=== PATIENT | male | born 1960 | race Caucasian/White ===

== ENCOUNTER 2016-11-14 14:42 | Emergency (ER) | payer BC ==
[2016-11-14 15:10] VITALS: TEMP 98
[2016-11-14] MEDS ORDERED: HYDROmorphone HCL INJ 2 MG/ML VIAL IV ONE (15:23)
[2016-11-14] MEDS ORDERED: ONDANSETRON INJ 4 MG/2 ML VIAL IV ONE (15:23)
--- NOTE | 2016-11-14 15:26 | ED.PDOC ---
History of Present Illness - General Chief Complaint: Back Pain or Injury Stated Complaint: back pain hx of lumbar fractures Time Seen by Provider: 11/14/16 14:45 Source: patient, RN notes reviewed, Vital Signs reviewed, family Exam Limitations: no limitations - History of Present Illness Initial Comments: Patient with significant back history including 2 lumbar fusions has noticed over the past 5 weeks progressive worsening of his pain and weakness in his legs. He has some residual weakness in his L leg from lumbar surgery in 2011. He is now having numbness and weakness in his R leg. Can't walk due to the weakness, leg just seems to "flop around". Had MRI done today as an outpatient. Will change to STAT read to see what is going on in his back. Timing/Duration: getting worse, changing over time Quality/Severity: dullness, other - numbness Back Pain Location: lumbar spine Back Pain Radiation: upper legs, lower legs, feet Method of Injury/Prior Injury: other - Hx of lumbar fusions L3-S1 Improving Factors: nothing Worsening Factors: movement Associated Symptoms: weakness, numbness in legs/feet, tingling in legs/feet, sensory/motor loss, lower back pain, other - no loss of bowel or bladder control Allergies/Adverse Reactions: Allergies NO KNOWN ALLERGY Allergy (Verified 11/14/16 15:26) Home Medications: Ambulatory Orders HYDROcodone 10MG/APAP 325MG [[place] 10/325] 1 ea PO 11/14/16 Lyrica 600 mg PO BID 11/14/16 Tramadol HCl [Tramadol HCl ER] 100 mg PO 11/14/16 methylPREDNISolone TAB [Medrol Tab] 4 mg PO DAILY #1 pack 11/14/16 Review of Systems - Review of Systems Constitutional: States: no symptoms reported EENTM: States: no symptoms reported Respiratory: States: no symptoms reported Cardiology: States: no symptoms reported Gastrointestinal/Abdominal: States: no symptoms reported Genitourinary: States: no symptoms reported Musculoskeletal: States: see HPI, back pain Skin: States: no symptoms reported Neurological: States: see HPI, numbness, paresthesia, pre-existing deficit, weakness Endocrine: States: no symptoms reported Hematologic/Lymphatic: States: no symptoms reported Past Medical History (General) - Patient Medical History Hx Seizures: No Hx Stroke: No Hx Dementia: No Hx Asthma: No Hx of COPD: No Hx Cardiac Disorders: No Hx Congestive Heart Failure: No Hx Pacemaker: No Hx Hypertension: No Hx Thyroid Disease: No Hx Diabetes: No Hx Gastroesophageal Reflux: No Hx Renal Disease: No Hx Cancer: No Hx of HIV: No Hx Hepatitis C: No Hx MRSA: Yes MRSA Source:: Wound - Vaccination History Hx Tetanus, Diphtheria Vaccination: Yes Hx Influenza Vaccination: Yes Hx Pneumococcal Vaccination: Yes Immunizations Up to Date: No - Social History Hx Tobacco Use: No Hx Chewing Tobacco Use: No Hx Alcohol Use: No Hx Substance Use: No Hx Substance Use Treatment: No Hx Depression: No Feels Threatened In Home Enviroment: No Feels Threatened In a Relationship: No Hx Physical Abuse: No Hx Emotional Abuse: No Hx Suspected Abuse: No - Female History Patient is a Female of Child Bearing Age (10 -59 yrs old): No Patient : No Family Medical History - Family History Mother Family History: No Known Living Status: Unknown Physical Exam - Physical Exam General Appearance: Alert, No apparent distress, Well Developed, Well Groomed, Well Hydrated, Well Nourished Cardiovascular/Respiratory: regular rate, rhythm, no M/R/G, normal breath sounds , no respiratory distress Peripheral Pulses: dorsalis pedis,right: 2+, dorsalis pedis,left: 2+ Extremity Exam: no evidence of injury Neurologic: alert, normal mood/affect, oriented x 3, motor weakness - Significant weakness of flexion/extension of R foot and leg 2/5, L 4/5, sensory deficit - decreased sensation to light touch Bilateral lower legs - diffusely., depressed affect, other - DTR's - R patellar 2+, L patellar 0 (unchanged per patient) Skin Exam: normal color, warm/dry Comments: Vital Signs - 24 hr 11/14/16 15:03 Temperature 98 F Pulse Rate [ 79 Left Radial] Respiratory 20 Rate Blood Pressure 155/99 [Left Arm] O2 Sat by Pulse 99 Oximetry Progress - Progress Progress: 11/14/16 15:[address] Roberts, patients Neurosurgeon, awaiting call back. 11/14/16 16:39 Second call placed, he is in surgery. 11/14/16 17:[address] Roberts who agrees with rapid follow up with him. Recommended Decadron 6mg IV now, Medrol Dose Pk to start tomorrow and continue Lyrica 300mg TID. Patient is to call Dr. Roberts' office in AM to schedule appt. - Results/Orders Results/Orders: MRI: L2-3 - moderate to severe spinal canal narrowing with severe bilateral neural foraminal narrowing. Departure - Departure Clinical Impression: Degeneration of lumbar intervertebral disc, Lumbar radiculopathy, acute Time of Disposition: 17:48 Disposition: Discharge to Home or Self Care Condition: Good Departure Forms: ED Discharge - Pt. Copy, Patient Portal Self Enrollment Instructions: DI for Low Back Pain Diet: resume usual diet Activity: increase activity as tolerated Prescriptions: methylPREDNISolone TAB [Medrol Tab] 4 mg PO DAILY #1 pack Home Medications: Ambulatory Orders HYDROcodone 10MG/APAP 325MG [[place] 10/325] 1 ea PO 11/14/16 Lyrica 600 mg PO BID 11/14/16 Tramadol HCl [Tramadol HCl ER] 100 mg PO 11/14/16 methylPREDNISolone TAB [Medrol Tab] 4 mg PO DAILY #1 pack 11/14/16 Additional Instructions: Con't Lyrica Call Dr. Roberts' office in AM to schedule follow up.
[2016-11-14] MEDS ORDERED: DEXAMETHASONE INJ 10 MG/ML VIAL IV ONE (17:44)
[2016-11-14 17:59] VITALS: BP 135/88; O2SAT 97
== END 2016-11-14 18:06 | disposition home or self-care (01) ==
LOC: ER 14:42
DX: M51.16 Intervertebral disc disorders with radiculopathy, lumbar region (principal); Z98.1 Arthrodesis status; Z86.14 Personal history of Methicillin resistant Staphylococcus aureus infection

== ENCOUNTER → 2016-11-14 | Outpatient (CLI) | payer BC ==
--- NOTE | 2016-11-14 15:37 | MRI ---
Study: MRI of the Lumbar Spine. Indication: LOW BACK PAIN Technique: Multiplanar, multi sequence MRI of the lumbar spine was obtained without intravenous contrast. Comparison: October 13, 2015. Findings: L3-S1 bilateral pedicle screws with posterior vertical stabilization rods as well as L3-L4, L4-L5, L5-S1 interbody grafts and laminectomies redemonstrated. There is pronounced susceptibility artifact. No acute vertebral body fracture identified. No marrow infiltrating lesion. Conus normal terminating at superior L1 level. L1-L2: Trace retrolisthesis. Moderate disc space height loss and disc desiccation with a 3 mm disc bulge. Mild bilateral neural foraminal narrowing stable. No spinal canal narrowing. Stable mild bilateral lateral recess narrowing. L2-L3: Progressed severe disc space height loss and disc desiccation with remodeling of the endplates. Discogenic endplate changes suspected but difficult to evaluate due to the susceptibility artifact. In addition, there does appear to be progressive cystic change along the right posterolateral margin of the L2 inferior endplate. A progressed 5 mm disc osteophyte complex noted in addition moderate to severe bilateral facet arthrosis and mild ligament and buckling. Prominent spurring of the anteromedial margin right facet joint noted with marked flattening of the thecal sac in the transverse dimension. There is resultant moderate to severe spinal canal narrowing. Severe bilateral neural foraminal narrowing noted as well. L3-L4: No new complicating features. L4-L5: Trace anterolisthesis with stable mild to moderate right and mild left neural foraminal narrowing. No spinal canal narrowing. L5-S1: The posterior margin of the interbody graft extends into the left neural foramen. There is severe left and at least moderate to severe right neural foraminal narrowing. No spinal canal narrowing. Impression: L3-S1 fusion construct and posterior decompression as above with associated susceptibility artifact which does degrade the examination. L5-S1 interbody graft extending into the left neural foramen with severe left and moderate to severe right neural foraminal narrowing. L4-L5 stable [id number] right and mild left neural foraminal narrowing. L2-L3 progress disc disease as above with progressive moderate to severe spinal canal narrowing and severe bilateral neural foraminal narrowing. Endplate changes at this level are nonspecific. Correlation with ESR and CRP recommended as discitis-osteomyelitis not excluded. Additional findings as above. Electronically signed by: Guillermo Johnson MD 11/14/2016 3:36 PM CDT
== END | disposition home or self-care (01) ==
LOC: MRI 12:54
PROVIDERS: ATTEND Family Medicine
DX: M54.5 Low back pain (principal)

== ENCOUNTER → 2016-11-17 | Outpatient (CLI) | payer BC | END | disposition home or self-care (01) | LOC: GMAL 17:32 | PROVIDERS: ATTEND Family Medicine | DX: M25.50 Pain in unspecified joint (principal) ==

== ENCOUNTER → 2017-07-28 | Outpatient (CLI) | payer BC | LOC: GMAL 10:36 | PROVIDERS: ATTEND Family Medicine | DX: Z00.00 Encounter for general adult medical examination without abnormal findings (principal) ==

== ENCOUNTER → 2017-12-07 | Outpatient (CLI) | payer BC | LOC: GMAL 14:24 | PROVIDERS: ATTEND Family Medicine | DX: E55.9 Vitamin D deficiency, unspecified (principal) ==

== ENCOUNTER 2017-12-17 08:52 | Emergency (ER) | payer BC ==
--- NOTE | 2017-12-17 09:45 | ED.PDOC ---
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 Timing/Duration: 24 hours Quality/Severity: sharpness Back Pain Location: T-spine, lumbar spine Back Pain Radiation: other - none Method of Injury/Prior Injury: other - old injury Improving Factors: rest Worsening Factors: movement Associated Symptoms: denies symptoms Allergies/Adverse Reactions: Allergies NO KNOWN ALLERGY Allergy (Verified 12/17/17 09:08) Home Medications: Ambulatory Orders HYDROcodone 10MG/APAP 325MG [[place] 10/325] 1 ea PO Q4HR 11/14/16 Tramadol HCl [Tramadol HCl ER] 100 mg PO BID 11/14/16 Acetamin W/Cod #3 Tab [Tylenol w/CODEINE #3] 2 ea PO Q6HRS PRN #20 tab 12/17/17 Aspirin/Acetaminophen/Caffeine [Excedrin Migraine] 1 ea PO PRN PRN 12/17/17 Escitalopram [Lexapro] 10 mg PO BEDTIME 12/17/17 Pregabalin [Lyrica] 1 capsule PO BEDTIME 12/17/17 Sucralfate Suspension [Carafate Suspension] 1 gm PO ACHS #300 ml 12/17/17 Tamsulosin [Flomax] 0.4 mg PO QD #7 cap 12/17/17 raNITIdine HCL [Zantac] 150 mg PO BID #60 tab 12/17/17 Review of Systems - Review of Systems Constitutional: States: no symptoms reported EENTM: States: nose congestion Respiratory: States: no symptoms reported Cardiology: States: no symptoms reported Gastrointestinal/Abdominal: States: no symptoms reported Genitourinary: States: no symptoms reported Musculoskeletal: States: see HPI Neurological: States: no symptoms reported All other Systems: Reviewed and Negative, No Change from Baseline Past Medical History (General) - Patient Medical History Hx Seizures: No Hx Stroke: No Hx Dementia: No Hx Asthma: Yes - As a child Hx of COPD: No Hx Cardiac Disorders: No Hx Congestive Heart Failure: No Hx Pacemaker: No Hx Hypertension: No Hx Thyroid Disease: No Hx Diabetes: No Hx Gastroesophageal Reflux: No Hx Renal Disease: No Hx Cancer: No Hx of HIV: No Hx Hepatitis C: No Hx MRSA: Yes MRSA Source:: Wound Surgical History: other - multiple lumbar sugery;ORIF right forearm fracture - Vaccination History Hx Tetanus, Diphtheria Vaccination: Yes Hx Influenza Vaccination: No Hx Pneumococcal Vaccination: Yes - Social History Hx Tobacco Use: No Hx Chewing Tobacco Use: No Hx Alcohol Use: Yes - Occas Hx Substance Use: No Hx Substance Use Treatment: No Hx Depression: No Feels Threatened In Home Enviroment: No Feels Threatened In a Relationship: No Hx Physical Abuse: No Hx Emotional Abuse: No Hx Suspected Abuse: No - Female History Patient : No Family Medical History - Family History Mother Family History: No Known Living Status: Unknown Hx Cardiac Disease: Yes - dad Hx Family Cancer: Yes - breast-mom Physical Exam - Physical Exam General Appearance: Alert, Comfortable, No apparent distress Eyes, Ears, Nose, Throat Exam: normal ENT inspection Neck Exam: non-tender, full range of motion, normal alignment, normal inspection Cardiovascular/Respiratory: regular rate, rhythm, no M/R/G, normal peripheral pulses, no JVD Peripheral Pulses: radial,right: 2+, radial,left: 2+ Gastrointestinal/Abdominal: normal bowel sounds, non tender, soft, no organomegaly Back Exam: no CVA tenderness, no vertebral tenderness, muscle spasm, other - rectal exam-prostate moderately enlarged ;posive FOBT Extremity Exam: normal range of motion, non-tender, no pedal edema Neurologic: alert, oriented x 3, motor weakness - foot [id number] from previous surgeries Skin Exam: normal color, warm/dry Progress - Progress Progress: 12/17/17 09:50 Vital Signs - 8 hr 12/17/17 09:29 Temperature 97.6 F Pulse Rate [L 102 H Arm] Respiratory 18 Rate Blood Pressure 144/100 [L Arm] O2 Sat by Pulse 100 Oximetry - EKG/XRAY/CT EKG: Sinus, no ST T wave changes Comments: NSR;HR-73 XRAY: chest - no acute cardiopulmonary process CT Ordered: Yes - abd/p-3 mm UVJ right ureterolithiasis Departure - Departure Clinical Impression: Calculus of distal right ureter, Positive occult stool blood test, Rhinitis medicamentosa, History of back surgery Back pain, acute Qualifiers: Back pain location: thoracic back pain Back pain laterality: unspecified Qualified Code(s): M54.6 - Pain in thoracic spine Time of Disposition: 12:48 Disposition: Discharge to Home or Self Care Condition: Fair Departure Forms: ED Discharge - Pt. Copy, Patient Portal Self Enrollment Instructions: DI for Low Back Pain Referrals: Elmer Royal III, MD [Primary Care Provider] - 1-2 Weeks Prescriptions: Acetamin W/Cod #3 Tab [Tylenol w/CODEINE #3] 2 ea PO Q6HRS PRN #20 tab PRN Reason: Pain raNITIdine HCL [Zantac] 150 mg PO BID #60 tab Sucralfate Suspension [Carafate Suspension] 1 gm PO ACHS #300 ml Tamsulosin [Flomax] 0.4 mg PO QD #7 cap Home Medications: Ambulatory Orders HYDROcodone 10MG/APAP 325MG [[place] 10/325] 1 ea PO Q4HR 11/14/16 Tramadol HCl [Tramadol HCl ER] 100 mg PO BID 11/14/16 Acetamin W/Cod #3 Tab [Tylenol w/CODEINE #3] 2 ea PO Q6HRS PRN #20 tab 12/17/17 Aspirin/Acetaminophen/Caffeine [Excedrin Migraine] 1 ea PO PRN PRN 12/17/17 Escitalopram [Lexapro] 10 mg PO BEDTIME 12/17/17 Pregabalin [Lyrica] 1 capsule PO BEDTIME 12/17/17 Sucralfate Suspension [Carafate Suspension] 1 gm PO ACHS #300 ml 12/17/17 Tamsulosin [Flomax] 0.4 mg PO QD #7 cap 12/17/17 raNITIdine HCL [Zantac] 150 mg PO BID #60 tab 12/17/17 Additional Instructions: Discontinue Excedrin;Taper down on Afrin [place] for your nasal congestion-to one spray each nostril once a day 3 days on 3 days off;Need to follow up with your primary Md for referral to ENT for your chronic nasal congestion from chronic afrin use;Continue with Flonase(fluticasone-otc) nose spray -2 each nostril at bedtime;May take either-Geraldine,Zyrtec,Claritin (over the counter) for allergic rhinitis read direction on package insert;Also Follow up with your md for positive stool occult blood test to schedule you for egd/colonoscopy;Return to emergency room as needed;Might also need to see Urologist in am for your ureteral stone call your md's office for referral
[2017-12-17] MEDS ORDERED: LACTATED RINGERS 1,000 ML IVS ONE (09:51)
[2017-12-17] MEDS ORDERED: PROMETHAZINE HCL INJ 25 MG/ML VIAL IM ONE (09:51)
[2017-12-17] MEDS ORDERED: MORPHINE SULFATE INJ 10 MG/ML VIAL IV ONE (09:51)
[2017-12-17] MEDS ORDERED: ORPHENADRINE CITRATE 30 MG/ML AMP IV ONE (09:51)
--- NOTE | 2017-12-17 10:33 | RAD ---
Procedure: XR CHEST 2 VIEWS Exam Date: 12/17/2017 9:51 AM CDT Ordering Provider: Noman Evans Clinical Indication: pain Comparison: None Findings: The lungs are clear and well-aerated. No pleural effusion or pneumothorax. Cardiac silhouette is normal in size. Impression: No acute pulmonary process. Electronically signed by: Kina Lerner MD 12/17/2017 10:32 AM CDT
[2017-12-17] MEDS ORDERED: PANTOPRAZOLE INJECTION 80 MG in SODIUM CHLORIDE 0.9% 100ML 80 ML IVPB ONE (11:13)
[2017-12-17] MEDS ORDERED: SUCRALFATE 1 GM/10 ML 1 GM UD PO ONE (11:14)
[2017-12-17] MEDS ORDERED: PANTOPRAZOLE SODIUM IV 40 MG VIAL ONE (11:45)
[2017-12-17] MEDS ORDERED: SODIUM CHLORIDE 0.9% 100ML 100 ML IVPB ONE (11:45)
--- NOTE | 2017-12-17 11:54 | CT ---
Procedure: CT ABDOMEN PELVIS WITH IV CONTRAST Exam Date: 12/17/2017 11:21 AM CDT Ordering Provider: Noman Evans Clinical Indication: left sided abdominal pain Comparison: None TECHNIQUE: The abdomen and pelvis were scanned utilizing a multidetector helical scanner from the diaphragm to the lesser trochanter . Low osmolar IV contrast was also given. Coronal and sagittal reformations were obtained. This exam was performed according to our departmental dose-optimization program which includes automated exposure control, adjustment of the mA and/or kV according to patient size and/or use of iterative reconstruction technique. DISCUSSION: LOWER THORAX: Normal. HEPATOBILIARY: Subcentimeter low-density foci in the right hepatic lobe, statistically cysts or hemangiomas. No radiopaque gallstone is present. SPLEEN: No splenomegaly. PANCREAS: No focal masses or ductal dilatation. ADRENALS: No adrenal nodules. KIDNEYS/URETERS: 3 mm calculus is present in the right ureterovesical junction and results in mild right hydroureteronephrosis. There is a 2 mm nonobstructing stone in the upper pole of the left kidney. PELVIC ORGANS/BLADDER: There is vague nodular appearance of the superior segment possibly from median lobe hypertrophy or neoplasm. PERITONEUM / RETROPERITONEUM: No free air or fluid. LYMPH NODES: No lymphadenopathy. VESSELS: Unremarkable. GI TRACT: Stomach and small bowel are unremarkable. There is descending and sigmoid diverticulosis without diverticulitis. BONES AND SOFT TISSUES: Extensive postoperative changes are seen in the lumbar spine. There is L1-L2 grade 1 anterolisthesis. IMPRESSION: 3 mm obstructing stone at the right ureterovesical junction results in mild right hydroureteronephrosis. Punctate nonobstructing stone in the left kidney. Colonic diverticulosis without diverticulitis. Electronically signed by: Kina Lerner MD 12/17/2017 11:53 AM CDT
[2017-12-17] MEDS ORDERED: FLUTICASONE PROP 0.05% NASAL 16 GM BTTL BNAS SCH (12:00)
[2017-12-17] MEDS ORDERED: PSEUDOEPHEDRINE HCL 30 MG TAB PO ONE (12:01)
[2017-12-17 12:29] VITALS: O2SAT 100
[2017-12-17] MEDS ORDERED: HYDROcodone 10MG/APAP 325MG 1 EA TAB PO ONE (12:43)
[2017-12-17 13:04] VITALS: BP 153/91; TEMP 97.9
== END 2017-12-17 13:10 | disposition home or self-care (01) ==
LOC: ER 08:52
DX: M54.6 Pain in thoracic spine (principal); N13.2 Hydronephrosis with renal and ureteral calculous obstruction; J31.0 Chronic rhinitis; R19.5 Other fecal abnormalities; Z79.82 Long term (current) use of aspirin; Z79.899 Other long term (current) drug therapy; Z98.1 Arthrodesis status
CPT/HCPCS: 36415; 71046; 74177; 80048; 80076; 81001; 82270; 82550; 82553; 84484; 85025; 85610; 85730; 93005; J2270; J2360; J2550; J7050; J7120

== ENCOUNTER → 2017-12-20 | Outpatient (CLI) | payer BC | LOC: GMAM 14:56 | PROVIDERS: ATTEND Family Medicine | DX: N20.1 Calculus of ureter (principal) ==

== ENCOUNTER 2018-01-06 08:21 | Emergency (ER) | payer BC ==
--- NOTE | 2018-01-06 09:12 | RAD ---
Procedure: X-ray HIP 2 OR MORE VIEWS Exam Date: 01/06/2018 8:42 AM CDT Ordering Provider: Cr Scott Clinical Indication: fever, left inguinal pain Comparison: None Findings: No fracture, focal osseous destruction, or malalignment. Joint spaces are preserved. Soft tissues are unremarkable. Partially imaged postoperative changes in the lumbosacral spine. IMPRESSION: No acute osseous abnormality. Procedure: XR ABDOMEN 2 VIEWS SUPINE AND ERECT Exam Date: 01/06/2018 8:42 AM CDT Ordering Provider: Cr Scott Clinical Indication: fever, left inguinal pain Comparison: None Findings: Lungs are clear. Heart size is within normal limits. Abdomen views show non-obstructive bowel gas pattern. No pneumoperitoneum. Large volume stool burden. Postoperative changes in the lumbosacral spine related to anterior and posterior spinal fusion. Impression: No acute pulmonary process. Nonobstructive bowel gas pattern. Large amount of stool in the colon. Correlate for constipation. Electronically signed by: Kina Lerner MD 01/06/2018 9:10 AM CDT
[2018-01-06] MEDS ORDERED: SODIUM CHLORIDE 0.9% 1000ML 1,000 ML IVS ONE (10:23)
[2018-01-06 10:56] VITALS: TEMP 99.2
--- NOTE | 2018-01-06 11:00 | CT ---
Procedure: CT ABDOMEN PELVIS WITH IV CONTRAST Exam Date: 01/06/2018 10:23 AM CDT Ordering Provider: Cr Scott Clinical Indication: left lower abd and inguinal pain Comparison: December 17, 2017 TECHNIQUE: The abdomen and pelvis were scanned utilizing a multidetector helical scanner from the diaphragm to the lesser trochanter . Low osmolar IV contrast was also given. Coronal and sagittal reformations were obtained. This exam was performed according to our departmental dose-optimization program which includes automated exposure control, adjustment of the mA and/or kV according to patient size and/or use of iterative reconstruction technique. DISCUSSION: LOWER THORAX: Normal. HEPATOBILIARY: Subcentimeter low-density foci in the right hepatic lobe, statistically cysts or hemangiomas. No radiopaque gallstone is present. SPLEEN: No splenomegaly. PANCREAS: No focal masses or ductal dilatation. ADRENALS: No adrenal nodules. KIDNEYS/URETERS: 3 mm calculus is present in the right ureterovesical junction and results in no significant hydroureteronephrosis. There is a 2 mm nonobstructing stone in the upper pole of the left kidney. PELVIC ORGANS/BLADDER: There is vague nodular appearance of the superior segment possibly from median lobe hypertrophy or neoplasm. PERITONEUM / RETROPERITONEUM: No free air or fluid. LYMPH NODES: No lymphadenopathy. VESSELS: Unremarkable. GI TRACT: Stomach and small bowel are unremarkable. There is descending and sigmoid diverticulosis without diverticulitis. There is mild circumferential wall thickening of the sigmoid colon. BONES AND SOFT TISSUES: Extensive postoperative changes are seen in the lumbar spine. There is L1-L2 grade 1 anterolisthesis. IMPRESSION: Chronically obstructed 3 mm calculus at the right UVJ. No significant hydroureteronephrosis. Punctate nonobstructing stone in the left kidney. Mild circumferential wall thickening of the sigmoid colon but there is no significant surrounding inflammation. Findings are seen on a background of diverticulosis. These findings could be related to subclinical/low-grade diverticulitis. Somewhat nodular appearance of the prostate gland superiorly. Correlate with physical exam. Electronically signed by: Kina Lerner MD 01/06/2018 10:58 AM CDT
[2018-01-06] MEDS ORDERED: CIPROFLOXACIN 500 MG TAB PO ONE (11:12)
[2018-01-06] MEDS ORDERED: metroNIDAZOLE IV PREMIX 500MG 500 MG in PREMIX BAG 1 BAG IVPB ONE (11:12)
--- NOTE | 2018-01-06 11:15 | ED.PDOC ---
History of Present Illness - General Chief Complaint: Abdominal Pain Stated Complaint: left hip, left abdominal pain Time Seen by Provider: 01/06/18 08:23 Source: patient Exam Limitations: no limitations - History of Present Illness Initial Comments: the patient's a 57-year-old male presenting to the emergency room secondary to increasing left inguinal pain over the last week. The patient does take multiple pain medications that do have Tylenol in them. In spite of this he does have a low-grade fever here today. He has not had any difficulty with bowel movements. No difficulties with urination. Pain is just proximal to the left inguinal ligament. No real rebound or peritoneal signs. He has not been having any hypotension. No altered mental status. Of note, 3 weeks ago he did have a bleeding ulcer in his stomach that he had to have cauterized. No evidence of any rebleed since that time. No dizziness. No chest pain or shortness of breath. Timing/Duration: 1 week Severity: moderate Improving Factors: nothing Worsening Factors: nothing Associated Symptoms: denies symptoms Allergies/Adverse Reactions: Allergies NO KNOWN ALLERGY Allergy (Verified 12/17/17 09:08) Home Medications: Ambulatory Orders HYDROcodone 10MG/APAP 325MG [[place] 10/325] 1 ea PO Q4HR 11/14/16 Tramadol HCl [Tramadol HCl ER] 100 mg PO BID 11/14/16 Acetamin W/Cod #3 Tab [Tylenol w/CODEINE #3] 2 ea PO Q6HRS PRN #20 tab 12/17/17 Aspirin/Acetaminophen/Caffeine [Excedrin Migraine] 1 ea PO PRN PRN 12/17/17 Escitalopram [Lexapro] 10 mg PO BEDTIME 12/17/17 Pregabalin [Lyrica] 1 capsule PO BEDTIME 12/17/17 Sucralfate Suspension [Carafate Suspension] 1 gm PO ACHS #300 ml 12/17/17 Tamsulosin [Flomax] 0.4 mg PO QD #7 cap 12/17/17 raNITIdine HCL [Zantac] 150 mg PO BID #60 tab 12/17/17 Ciprofloxacin [Cipro] 500 mg PO BID #20 tab 01/06/18 Metronidazole 500 mg PO TID #30 tab 01/06/18 Review of Systems - Review of Systems Constitutional: States: no symptoms reported EENTM: States: no symptoms reported Respiratory: States: no symptoms reported Cardiology: States: no symptoms reported Gastrointestinal/Abdominal: States: see HPI. Denies: constipation, diarrhea, nausea, vomiting Genitourinary: States: no symptoms reported Musculoskeletal: States: see HPI Skin: States: no symptoms reported Neurological: States: no symptoms reported Endocrine: States: no symptoms reported All other Systems: No Change from Baseline Past Medical History (General) - Patient Medical History Hx Seizures: No Hx Stroke: No Hx Dementia: No Hx Asthma: Yes - As a child Hx of COPD: No Hx Cardiac Disorders: No Hx Congestive Heart Failure: No Hx Pacemaker: No Hx Hypertension: No Hx Thyroid Disease: No Hx Diabetes: No Hx Gastroesophageal Reflux: No Hx Renal Disease: No Hx Cancer: No Hx of HIV: No Hx Hepatitis C: No Hx MRSA: Yes MRSA Source:: Wound Surgical History: other - Vaccination History Hx Tetanus, Diphtheria Vaccination: Yes Hx Influenza Vaccination: No Hx Pneumococcal Vaccination: Yes - Social History Hx Tobacco Use: No Hx Chewing Tobacco Use: No Hx Alcohol Use: Yes - Occas Hx Substance Use: No Hx Substance Use Treatment: No Hx Depression: No Hx Physical Abuse: No Hx Emotional Abuse: No Hx Suspected Abuse: No - Female History Patient : No Family Medical History - Family History Mother Family History: No Known Living Status: Unknown Hx Cardiac Disease: Yes - dad Hx Family Cancer: Yes - breast-mom Physical Exam - Physical Exam General Appearance: Alert, Comfortable, No apparent distress Eye Exam: bilateral normal Ears, Nose, Throat: hearing grossly normal, normal ENT inspection, normal pharynx Neck: full range of motion, supple, normal inspection Respiratory: lungs clear, normal breath sounds, no respiratory distress, no accessory muscle use Cardiovascular/Chest: normal peripheral pulses, regular rate, rhythm, no edema Peripheral Pulses: radial,right: 2+, radial,left: 2+, dorsalis pedis,right: 2+, dorsalis pedis,left: 2+ Gastrointestinal/Abdominal: soft, other - mild to moderateextreme left lower discomfort to palpation Rectal Exam: deferred Back Exam: other - hronic changes only Extremity: normal range of motion, non-tender, normal inspection, no pedal edema 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 CT scan seems to indicate a sigmoid colitis versus early diverticulitis. The patient is going to be placed on ciprofloxacin and Flagyl. Vital signs have remained stable. Clinically the patient does not appear to be septic. No evidence of any abscess formation. Differential is normal. His white blood cell count is mildly low. He does need follow-up with his primary care doctor for a repeat CBC in 1-2 weeks to make sure that his white blood cell count is rebounding and he also has some nodularity noted on the CT scan of his prostate that needs to be followed up with his primary care doctor as well. Of note he did have a normal PSA approximately 7 months ago. No urinary symptoms at this time. ER warnings were given for any worsening. - Results/Orders Results/Orders: Laboratory Tests 01/06/18 01/06/18 01/06/18 09:07 09:07 09:07 WBC 3.5 L RBC 3.66 L Hgb 11.1 L Hct 33.1 L MCV 90.3 MCH 30.3 MCHC 33.5 RDW 14.9 H Plt Count 314 MPV 8.6 Absolute Neuts (auto) 1.90 Absolute Lymphs (auto) 1.00 Absolute Monos (auto) 0.40 Absolute Eos (auto) 0.10 Absolute Basos (auto) 0.10 Neutrophils % 55.6 Lymphocytes % 28.1 Monocytes % 11.0 H Eosinophils % 3.5 Basophils % 1.8 PT 12.5 INR 1.080 PTT (SP) 31.5 D-Dimer, Quantitative Sodium 139 Potassium 3.7 Chloride 107 Carbon Dioxide 26 Anion Gap 9.7 L BUN 20 H Creatinine 0.80 BUN/Creatinine Ratio 25.0 H Random Glucose 145 H Serum Osmolality 282.7 Lactic Acid Calcium 9.0 Total Bilirubin 0.2 AST 15 ALT 13 Alkaline Phosphatase 81 Creatine Kinase 36 L CK-MB (CK-2) 2.4 CK-MB (CK-2) % Not Reportable Troponin I < 0.02 C-Reactive Protein Serum Total Protein 6.7 Albumin 3.8 Globulin 2.9 Albumin/Globulin Ratio 1.3 TSH 0.33 L Urine Color Urine Appearance Urine pH Ur Specific [place] Urine Protein Urine Glucose (UA) Urine Ketones Urine Blood Urine Nitrite Urine Bilirubin Urine Urobilinogen Ur Leukocyte Esterase Urine RBC Urine WBC Ur Epithelial Cells Urine Bacteria 01/06/18 01/06/18 01/06/18 09:07 09:07 09:39 WBC RBC Hgb Hct MCV MCH MCHC RDW Plt Count MPV Absolute Neuts (auto) Absolute Lymphs (auto) Absolute Monos (auto) Absolute Eos (auto) Absolute Basos (auto) Neutrophils % Lymphocytes % Monocytes % Eosinophils % Basophils % PT INR PTT (SP) D-Dimer, Quantitative Sodium Potassium Chloride Carbon Dioxide Anion Gap BUN Creatinine BUN/Creatinine Ratio Random Glucose Serum Osmolality Lactic Acid 1.6 Calcium Total Bilirubin AST ALT Alkaline Phosphatase Creatine Kinase CK-MB (CK-2) CK-MB (CK-2) % Troponin I C-Reactive Protein < 0.5 Serum Total Protein Albumin Globulin Albumin/Globulin Ratio TSH Urine Color Yellow Urine Appearance Clear Urine pH 5.5 Ur Specific [place] >= 1.030 Urine Protein Negative Urine Glucose (UA) Negative Urine Ketones Negative Urine Blood Negative Urine Nitrite Negative Urine Bilirubin Negative Urine Urobilinogen 0.2 Ur Leukocyte Esterase Negative Urine RBC 0-1 Urine WBC 0-1 Ur Epithelial Cells 0 Urine Bacteria 0 01/06/18 09:39 WBC RBC Hgb Hct MCV MCH MCHC RDW Plt Count MPV Absolute Neuts (auto) Absolute Lymphs (auto) Absolute Monos (auto) Absolute Eos (auto) Absolute Basos (auto) Neutrophils % Lymphocytes % Monocytes % Eosinophils % Basophils % PT INR PTT (SP) D-Dimer, Quantitative < 200 Sodium Potassium Chloride Carbon Dioxide Anion Gap BUN Creatinine BUN/Creatinine Ratio Random Glucose Serum Osmolality Lactic Acid Calcium Total Bilirubin AST ALT Alkaline Phosphatase Creatine Kinase CK-MB (CK-2) CK-MB (CK-2) % Troponin I C-Reactive Protein Serum Total Protein Albumin Globulin Albumin/Globulin Ratio TSH Urine Color Urine Appearance Urine pH Ur Specific [place] Urine Protein Urine Glucose (UA) Urine Ketones Urine Blood Urine Nitrite Urine Bilirubin Urine Urobilinogen Ur Leukocyte Esterase Urine RBC Urine WBC Ur Epithelial Cells Urine Bacteria acute abdominal series shows moderate constipation. CT scan abdomen and pelvis shows sigmoid colitis and possible mild diverticulitis. He does have a nonobstructing 3 mm right kidney stone at the ureterovesicular junction that is not obstructing. He also has some prostate nodularity. Departure - Departure Clinical Impression: Diverticulitis Qualifiers: Diverticulitis site: large intestine Diverticulitis bleeding: without bleeding Diverticulitis complication: without perforation or abscess Qualified Code(s): K57.32 - Diverticulitis of large intestine without perforation or abscess without bleeding Disposition: Discharge to Home or Self Care Condition: Fair Departure Forms: ED Discharge - Pt. Copy, Patient Portal Self Enrollment Instructions: DI for Diverticulitis Diet: regular diet Activity: increase activity as tolerated Referrals: Elmer Royal III, MD [Primary Care Provider] - 1-2 Weeks Prescriptions: Ciprofloxacin [Cipro] 500 mg PO BID #20 tab Metronidazole 500 mg PO TID #30 tab Home Medications: Ambulatory Orders HYDROcodone 10MG/APAP 325MG [[place] 10/325] 1 ea PO Q4HR 11/14/16 Tramadol HCl [Tramadol HCl ER] 100 mg PO BID 11/14/16 Acetamin W/Cod #3 Tab [Tylenol w/CODEINE #3] 2 ea PO Q6HRS PRN #20 tab 12/17/17 Aspirin/Acetaminophen/Caffeine [Excedrin Migraine] 1 ea PO PRN PRN 12/17/17 Escitalopram [Lexapro] 10 mg PO BEDTIME 12/17/17 Pregabalin [Lyrica] 1 capsule PO BEDTIME 12/17/17 Sucralfate Suspension [Carafate Suspension] 1 gm PO ACHS #300 ml 12/17/17 Tamsulosin [Flomax] 0.4 mg PO QD #7 cap 12/17/17 raNITIdine HCL [Zantac] 150 mg PO BID #60 tab 12/17/17 Ciprofloxacin [Cipro] 500 mg PO BID #20 tab 01/06/18 Metronidazole 500 mg PO TID #30 tab 01/06/18 Additional Instructions: the patient's a 57-year-old male presenting to the emergency room secondary to left inguinal pain progressive over the last week. CT scan seems to indicate a sigmoid colitis versus early diverticulitis. The patient is going to be placed on ciprofloxacin and Flagyl. Vital signs have remained stable. Clinically the patient does not appear to be septic. No evidence of any abscess formation. Differential is normal. His white blood cell count is mildly low. He does need follow-up with his primary care doctor for a repeat CBC in 1-2 weeks to make sure that his white blood cell count is rebounding and he also has some nodularity noted on the CT scan of his prostate that needs to be followed up with his primary care doctor as well. Of note he did have a normal PSA approximately 7 months ago. No urinary symptoms at this time. ER warnings were given for any worsening.
[2018-01-06] MEDS ORDERED: metroNIDAZOLE IV PREMIX 500MG 100 ML IVPB ONE (11:16)
[2018-01-06 12:58] VITALS: BP 137/73; O2SAT 97
== END 2018-01-06 12:49 | disposition home or self-care (01) ==
LOC: ER 08:21
DX: K57.32 Diverticulitis of large intestine without perforation or abscess without bleeding (principal); N20.0 Calculus of kidney; K52.9 Noninfective gastroenteritis and colitis, unspecified; Z87.09 Personal history of other diseases of the respiratory system; Z86.14 Personal history of Methicillin resistant Staphylococcus aureus infection; Z87.11 Personal history of peptic ulcer disease; Z79.899 Other long term (current) drug therapy; Z79.82 Long term (current) use of aspirin
CPT/HCPCS: 36415; 73502; 74019; 74177; 80053; 81001; 82550; 82553; 83605; 84443; 84484; 85025; 85379; 85610; 85730; 86140; 87040; J3490; J7030

== ENCOUNTER → 2018-01-17 | Outpatient (CLI) | payer BC | LOC: GMAJ 11:15 | PROVIDERS: ATTEND Family Medicine | DX: D50.8 Other iron deficiency anemias (principal) ==

== ENCOUNTER → 2018-02-06 | Outpatient (CLI) | payer BC | LOC: GMAL 10:36 | PROVIDERS: ATTEND Family Medicine | DX: D50.8 Other iron deficiency anemias (principal) ==

== ENCOUNTER → 2018-09-28 | Outpatient (CLI) | payer BC ==
--- NOTE | 2018-09-28 10:57 | RAD ---
EXAM DESCRIPTION: Pelvis CLINICAL HISTORY: 58 years Male, PAIN IN LEFT HIP COMPARISON: None. TECHNIQUE: AP radiograph of the pelvis was performed. FINDINGS: The pelvic ring appears grossly intact on this single AP radiograph. No acute fracture or dislocation. Bilateral sacroiliac joints appear normal. Mild degenerative changes are identified in bilateral hip joints. The visualized lumbo-sacral spine demonstrates mild degenerative changes. IMPRESSION: Single AP radiograph of the pelvis demonstrates grossly intact pelvic ring. Mild bilateral hip osteoarthritis. Electronically signed by: Lilian Quiroga MD 09/28/2018 10:55 AM [facility]
== END ==
LOC: RAD 09:13
PROVIDERS: ATTEND Orthopaedic Surgery
DX: M16.0 Bilateral primary osteoarthritis of hip (principal); M25.551 Pain in right hip; M25.552 Pain in left hip

== ENCOUNTER → 2018-12-03 | Outpatient (CLI) | payer BC | LOC: GMAJ 10:35 | PROVIDERS: ATTEND Family Medicine | DX: Z00.00 Encounter for general adult medical examination without abnormal findings (principal) ==

== ENCOUNTER → 2019-02-18 | Outpatient (CLI) | payer BC | LOC: LAB.O 08:51 | PROVIDERS: ATTEND Orthopaedic Surgery | DX: M17.0 Bilateral primary osteoarthritis of knee (principal) ==

== ENCOUNTER → 2019-04-25 | Outpatient (CLI) | payer BC ==
--- NOTE | 2019-04-25 10:59 | RAD ---
NECK PAIN PROVIDED CLINICAL HISTORY/REASON FOR EXAM: NECK PAIN Findings: Number of images: 5 Location: Cervical spine C1- C7 demonstrated on the lateral view. The lung apices are unremarkable. Prevertebral soft tissues are unremarkable. No acute fracture or subluxation. Vertebral body heights are maintained. Moderate multilevel degenerative disc disease. C3/C4 disc space narrowing with endplate degenerative change, and facet/uncinate process hypertrophy. C4/C5 disc space narrowing with endplate degenerative change, marginal osteophytosis and facet/uncinate process hypertrophy. C5/C6 facet and uncinate process hypertrophy. C6/C7 where disc space narrowing with endplate degenerative change, marginal osteophytosis and facet/uncinate process hypertrophy. IMPRESSION: Moderate multilevel cervical spondylosis. No acute fracture or subluxation. Electronically signed by: Adeel Cali MD 04/25/2019 10:57 AM CDT
--- NOTE | 2019-04-25 10:59 | RAD ---
Frontal, lateral, and oblique views of the left hand. Indication:HAND PAIN Comparison: None. Impression: No acute fracture. If there is persistent anatomic snuffbox tenderness, repeat wrist imaging to include a scaphoid view is recommended in one week to evaluate for occult scaphoid fracture. Moderate to severe narrowing throughout the PIP and DIP joints of the hand and most pronounced at the second and fifth PIP joints where there is mild gull wing deformities consistent with erosive osteoarthritis. Associated osteophytes at these joints. No marginal osseous erosions identified. Moderate osteoarthritis first CMC joint. Soft tissues are intact without radiopaque foreign body. Electronically signed by: Guillermo Johnson MD 04/25/2019 10:58 AM CDT
--- NOTE | 2019-04-25 11:03 | RAD ---
EXAM DESCRIPTION: Hand,Right 3 Views CLINICAL HISTORY: HAND PAIN COMPARISON: None. TECHNIQUE: 3 views right FINDINGS: Distal and proximal interphalangeal joint arthritis is observed throughout the hand. Metacarpal phalangeal joint arthritis is observed in the second through third digits. The exam reveals a: Aeration of the ulnar side carpals. This may be the result of prior surgical fusion. No scaphoid is identified and I presume is been previously resected. Radiocarpal arthritis is observed. IMPRESSION: Arthritic and presumed postsurgical changes are observed. No acute injury is seen. Electronically signed by: Elmer Ko MD 04/25/2019 11:01 AM CDT
--- NOTE | 2019-04-25 11:10 | RAD ---
EXAM DESCRIPTION: Lumbar Spine 5 Views CLINICAL HISTORY: LOW BACK PAIN COMPARISON: Lumbar magnetic resonance imaging dated October TECHNIQUE: 5 views FINDINGS: Pedicle screw and interbody fusion is observed at the L2-3 L3-4 L4-5 and L5-S1 levels. Marked endplate degenerative changes are observed at the L1-2 level. No hardware failure is detected. Extensive laminectomy is observed from L2 through L5. IMPRESSION: Extensive spine surgery is observed from L2 through S1. Advanced degenerative changes are observed at the L1-2 level. Electronically signed by: Elmer Ko MD 04/25/2019 11:08 AM CDT
== END ==
LOC: RAD 08:36
PROVIDERS: ATTEND Orthopaedic Surgery
DX: M47.892 Other spondylosis, cervical region (principal); M47.896 Other spondylosis, lumbar region; M19.041 Primary osteoarthritis, right hand; M19.042 Primary osteoarthritis, left hand; M18.52 Other unilateral secondary osteoarthritis of first carpometacarpal joint, left hand; Z98.890 Other specified postprocedural states

== ENCOUNTER 2019-07-25 14:13 | Emergency (ER) | payer BC ==
[2019-07-25] MEDS ORDERED: MORPHINE SULFATE INJ 10 MG/ML VIAL IV ONE (14:35)
[2019-07-25] MEDS ORDERED: ONDANSETRON INJ 4 MG/2 ML VIAL IV ONE (14:35)
[2019-07-25] MEDS ORDERED: ALUM & MAG HYDROX-SIMETHICONE 30 ML, LIDOCAINE VISCOUS 2% 15 ML PO ONE ×2 (14:35)
--- NOTE | 2019-07-25 14:36 | ED.PDOC ---
History of Present Illness - General Chief Complaint: GI Problem Time Seen by Provider: 07/25/19 14:20 - History of Present Illness Initial Comments: 58 M +pmh presents with to ED c/o approximately 1 week of progressive nausea with nonbloody nonbilious emesis and abdominal pain. Pt endorses associated subjective fever with chills. He informs that since he has been PO intolerant, he has been unable to keep his daily [place] 10's or Lyrica down. He d enies any current associated diarrhea, constipation, back pain, CP, SOB, dizziness/lightheadedness, headache, or acute changes in urination. He is otherwise healthy with no other signs, symptoms, or complaints. Review of Systems - Review of Systems Constitutional: States: chills, fever - subjective, other - generalized fatigue EENTM: Denies: blurred vision, nose congestion, throat pain Respiratory: Denies: cough, short of breath Cardiology: Denies: chest pain, edema, palpitations Gastrointestinal/Abdominal: States: abdominal pain, nausea, vomiting. Denies: constipation, diarrhea Genitourinary: Denies: dysuria, frequency Musculoskeletal: Denies: back pain, joint pain, neck pain Skin: Denies: change in color, rash Neurological: Denies: headache, weakness Endocrine: Denies: excessive sweating, increased urine Past Medical History (General) - Patient Medical History Hx Seizures: No Hx Stroke: No Hx Dementia: No Hx Asthma: Yes - As a child Hx of COPD: No Hx Cardiac Disorders: No Hx Congestive Heart Failure: No Hx Pacemaker: No Hx Hypertension: No Hx Thyroid Disease: No Hx Diabetes: No Hx Gastroesophageal Reflux: No Hx Renal Disease: No Hx Cancer: No Hx of HIV: No Hx Hepatitis C: No Hx MRSA: Yes MRSA Source:: Wound - Vaccination History Hx Tetanus, Diphtheria Vaccination: Yes Hx Influenza Vaccination: No Hx Pneumococcal Vaccination: Yes - Social History Hx Tobacco Use: No Hx Chewing Tobacco Use: No Hx Alcohol Use: Yes - Occas Hx Substance Use: No Hx Substance Use Treatment: No Hx Depression: No Hx Physical Abuse: No Hx Emotional Abuse: No Hx Suspected Abuse: No - Female History Patient : No Family Medical History - Family History Mother Family History: No Known Living Status: Unknown Hx Cardiac Disease: Yes - dad Hx Family Cancer: Yes - breast-mom Physical Exam - Physical Exam General Appearance: Alert, Comfortable, No apparent distress, Well Developed, Well Groomed, Well Nourished Eyes, Ears, Nose, Throat Exam: PERRL/EOMI, other - dry oral mucosa Neck: full range of motion, supple Respiratory: lungs clear, normal breath sounds, no respiratory distress Cardiovascular/Chest: regular rate, rhythm, no edema, no JVD, no murmur Peripheral Pulses: No deficit Gastrointestinal/Abdominal: normal bowel sounds, soft, other - mild epigastric and LLQ TTP, no rebound, no guarding, no peritoneal signs, no CVAT bilaterally Back Exam: no CVA tenderness Extremity: normal inspection, no pedal edema Neurologic: alert, normal mood/affect, oriented x 3 Skin Exam: normal color, warm/dry, other - mild decrease in skin turgor, no rash Special Observations: Smiling Progress - Progress Progress: 07/25/19 14:39 Presents with concern for gastritis vs diverticulitis with less concern for UTI; no clinical findings of pyelonephritis. I will evaluate labs, imaging, provide appropriate pharmacotherapy as indicated, and continue to monitor/reassess. Disposition will depend on labs, imaging, and pt's clinical course in ED; however, discharge home with education/instructions, f/u, and possible RX is expected. Rechecked pt with spouse at bedside. NAD, VSS. Pt is feeling much better. I have discussed lab findings, imaging findings, my clinical impression, and diagnosis of hepatic cysts, urolithiasis in kidney and bladder, diverticulosis without diverticulitits, dehydration due to refractory n/v, gastritis, and unintentional opiate early/minor withdrawal. ED return precautions given. Pt is PO tolerant with over half of a large cup of diet coke remaining asymptomatic. Pt and spouse agree with plan, voice understanding, and all questions answered. 07/25/19 17:17 - Results/Orders Results/Orders: Laboratory Tests 07/25/19 07/25/19 07/25/19 14:45 14:45 16:00 WBC 7.8 RBC 5.18 Hgb 15.9 Hct 46.6 MCV 89.9 MCH 30.8 MCHC 34.2 RDW 14.0 Plt Count 377 MPV 8.3 Absolute Neuts (auto) 5.10 Absolute Lymphs (auto) 1.70 Absolute Monos (auto) 0.80 Absolute Eos (auto) 0.00 Absolute Basos (auto) 0.10 Neutrophils % 65.1 Lymphocytes % 22.3 Monocytes % 10.7 H Eosinophils % 0.6 L Basophils % 1.3 Sodium 138 Potassium 3.4 L Chloride 104 Carbon Dioxide 21 Anion Gap 16.4 BUN 27 H Creatinine 0.96 BUN/Creatinine Ratio 28.1 H Random Glucose 157 H Serum Osmolality 284.0 Calcium 9.5 Total Bilirubin 0.8 AST 29 ALT 19 Alkaline Phosphatase 94 Serum Total Protein 7.7 Albumin 4.7 Globulin 3.0 Albumin/Globulin Ratio 1.6 Lipase 37 Urine Color Yellow Urine Appearance Clear Urine pH 5.5 Ur Specific [place] 1.010 Urine Protein Trace Urine Glucose (UA) Negative Urine Ketones 15 H Urine Blood Negative Urine Nitrite Negative Urine Bilirubin Moderate Urine Urobilinogen 0.2 Ur Leukocyte Esterase Negative Urine RBC 0 Urine WBC 0 Ur Epithelial Cells 0 Urine Bacteria 0 EXAM DESCRIPTION: Abdomen/Pelvis w/Contrast CLINICAL HISTORY: 58 years Male, n/v, po intolerance, f/c, h/o diverticulosis COMPARISON: 19 mGy 2017 TECHNIQUE: Transaxial images were obtained without intravenous contrast medium with oral contrast media. Sagittal and coronal reconstruction was performed.This exam was performed according to our departmental dose-optimization program, which includes automated exposure control, adjustment of the mA and/or kV according to patient size and/or use of iterative reconstruction technique. FINDINGS: The lung bases are clear. Coronary artery calcification is noted. The liver and spleen are unremarkable. Tiny cysts are observed in the posterior right lobe of liver. No adrenal masses are detected. The pancreas is normal. Imaging of the kidneys reveals no evidence of hydronephrosis or solid mass. A tiny mid pole nonobstructing calculus is observed on the left measuring 3.4 mm in diameter. A tiny cyst is observed in the upper pole the right kidney. Pedicle screw fusion of the lower lumbar spine is observed. Extensive interspinous fusion is observed. There is evidence of a wide lower lumbar laminectomy. Diverticulosis of the colon is observed without evidence of diverticulitis. No free fluid is observed. Prostatic hypertrophy is noted. A stone is observed in the right side of the urinary bladder. The appendix is identified and is unremarkable. IMPRESSION: 1. The exam demonstrates evidence of small cyst in the liver and kidneys. 2. Small nonobstructing stone is observed in the mid left kidney. 3. Extensive uncomplicated diverticulosis of the colon is observed. 4. Extensive spine surgery. 5. A stone is observed in the right side of the urinary bladder and marked prostatic hypertrophy is observed. Electronically signed by: Elmer Ko MD 07/25/2019 3:54 PM [facility] Departure - Departure Clinical Impression: Dehydration, Narcotic dependence, Diverticulosis, Hepatic cyst Nausea & vomiting Qualifiers: Vomiting type: unspecified Vomiting Intractability: non-intractable Qualified Code(s): R11.2 - Nausea with vomiting, unspecified Gastritis Qualifiers: Gastritis type: unspecified gastritis Chronicity: acute Gastritis bleeding: without bleeding Qualified Code(s): K29.00 - Acute gastritis without bleeding Urolithiasis Qualifiers: Urinary calculus location: other lower urinary tract location Qualified Code(s): N21.8 - Other lower urinary tract calculus Time of Disposition: 16:31 Disposition: Discharge to Home or Self Care Condition: Fair Departure Forms: ED Discharge - Pt. Copy, Patient Portal Self Enrollment Instructions: DI for Gastritis, Nausea and Vomiting, Adult (DC), Opioids for Short-Term Treatment of Pain Diet: bland diet Referrals: Elmer Royal III, MD [Primary Care Provider] - 1-2 Weeks Prescriptions: Ondansetron Odt [Zofran ODT] 4 mg PO QID #12 tab Tramadol HCl 50 mg PO TID PRN #12 tab PRN Reason: Break Thru Pain Home Medications: Ambulatory Orders HYDROcodone 10MG/APAP 325MG [[place] 10/325] 1 ea PO Q4HR 11/14/16 Tramadol HCl [Tramadol HCl ER] 100 mg PO BID 11/14/16 Acetamin W/Cod #3 Tab [Tylenol w/CODEINE #3] 2 ea PO Q6HRS PRN #20 tab 12/17/17 Aspirin/Acetaminophen/Caffeine [Excedrin Migraine] 1 ea PO PRN PRN 12/17/17 Escitalopram [Lexapro] 10 mg PO BEDTIME 12/17/17 Pregabalin [Lyrica] 1 capsule PO BEDTIME 12/17/17 Sucralfate Suspension [Carafate Suspension] 1 gm PO ACHS #300 ml 12/17/17 Tamsulosin [Flomax] 0.4 mg PO QD #7 cap 12/17/17 raNITIdine HCL [Zantac] 150 mg PO BID #60 tab 12/17/17 Ciprofloxacin [Cipro] 500 mg PO BID #20 tab 01/06/18 Metronidazole 500 mg PO TID #30 tab 01/06/18 Ondansetron Odt [Zofran ODT] 4 mg PO QID #12 tab 07/25/19 Tramadol HCl 50 mg PO TID PRN #12 tab 07/25/19
[2019-07-25] MEDS ORDERED: LIDOCAINE HCL 2% (MOUTH-THROAT) 15 ML UD ONE (15:06)
[2019-07-25] MEDS ORDERED: ALUM & MAG HYDROX-SIMETHICONE 30 ML UD ONE (15:06)
--- NOTE | 2019-07-25 15:56 | CT ---
EXAM DESCRIPTION: Abdomen/Pelvis w/Contrast CLINICAL HISTORY: 58 years Male, n/v, po intolerance, f/c, h/o diverticulosis COMPARISON: 19 mGy 2017 TECHNIQUE: Transaxial images were obtained without intravenous contrast medium with oral contrast media. Sagittal and coronal reconstruction was performed.This exam was performed according to our departmental dose-optimization program, which includes automated exposure control, adjustment of the mA and/or kV according to patient size and/or use of iterative reconstruction technique. FINDINGS: The lung bases are clear. Coronary artery calcification is noted. The liver and spleen are unremarkable. Tiny cysts are observed in the posterior right lobe of liver. No adrenal masses are detected. The pancreas is normal. Imaging of the kidneys reveals no evidence of hydronephrosis or solid mass. A tiny mid pole nonobstructing calculus is observed on the left measuring 3.4 mm in diameter. A tiny cyst is observed in the upper pole the right kidney. Pedicle screw fusion of the lower lumbar spine is observed. Extensive interspinous fusion is observed. There is evidence of a wide lower lumbar laminectomy. Diverticulosis of the colon is observed without evidence of diverticulitis. No free fluid is observed. Prostatic hypertrophy is noted. A stone is observed in the right side of the urinary bladder. The appendix is identified and is unremarkable. IMPRESSION: 1. The exam demonstrates evidence of small cyst in the liver and kidneys. 2. Small nonobstructing stone is observed in the mid left kidney. 3. Extensive uncomplicated diverticulosis of the colon is observed. 4. Extensive spine surgery. 5. A stone is observed in the right side of the urinary bladder and marked prostatic hypertrophy is observed. Electronically signed by: Elmer Ko MD 07/25/2019 3:54 PM [facility]
[2019-07-25 17:36] VITALS: BP 133/95; TEMP 98.4; O2SAT 95
== END 2019-07-25 17:28 | disposition home or self-care (01) ==
LOC: ER 14:13
DX: K29.00 Acute gastritis without bleeding (principal); E86.0 Dehydration; K57.30 Diverticulosis of large intestine without perforation or abscess without bleeding; K76.89 Other specified diseases of liver; N20.0 Calculus of kidney; N21.0 Calculus in bladder; F11.20 Opioid dependence, uncomplicated
CPT/HCPCS: 36415; 74177; 80053; 81001; 83690; 85025; J2270; J2405

== ENCOUNTER → 2019-09-19 | Outpatient (CLI) | payer BC, OTHER ==
--- NOTE | 2019-09-20 08:04 | MRI ---
Study: MRI of the Right Hand. Indication: INFLAMMATORY ARTHRITIS Technique: Multiplanar, multi sequence MRI of the right hand was obtained without intravenous contrast. Comparison: Radiographs April 25, 2019. Findings: Extensive postsurgical changes of the wrist. Prior resection of the scaphoid with several millimetric osseous fragments at its expected location. 4 corner solid osseous fusion of the lunate, triquetrum, capitate, and hamate. Maceration TFC with no normal tissue present. 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 Moderate changes of the first CMC joint. No acute fracture of the hand or wrist. Scattered moderate to severe osteoarthritic changes of the MCP joints noted and most pronounced at the second through fifth joints where there is multifocal grade 4 chondral loss and prominent areas of subchondral cystic change. No acute tear of the radial or ulnar collateral ligaments. No definitive osseous erosions. No acute fracture of the flexor or extensor tendons. Mild to moderate osteoarthritic changes throughout the PIP and DIP joints of the hand as well and most pronounced at the fourth PIP joint. Impression: Post surgical changes of prior scaphoid resection and 4 corner fusion of the lunate, triquetrum, hamate, capitate. Advanced osteoarthritic changes throughout the right hand and wrist as detailed above. No acute fracture or osseous erosion identified. No acute ligament tear or tendon rupture. Electronically signed by: Guillermo Johnson MD 09/20/2019 8:03 AM [facility]
== END ==
LOC: MRI 09:02
PROVIDERS: ATTEND Internal Medicine Rheumatology
DX: M19.041 Primary osteoarthritis, right hand (principal); M19.031 Primary osteoarthritis, right wrist; Z98.1 Arthrodesis status; Z98.890 Other specified postprocedural states

== ENCOUNTER → 2019-12-03 | Outpatient (CLI) | payer BC | LOC: GMAL 17:37 | PROVIDERS: ATTEND Family Medicine | DX: M25.462 Effusion, left knee (principal) ==

== ENCOUNTER → 2020-04-23 | Outpatient (CLI) | payer BC ==
--- NOTE | 2020-04-23 17:20 | RAD ---
EXAM DESCRIPTION: Knee,Left Complete CLINICAL HISTORY: 59 years Male, PAIN IN LEFT KNEE COMPARISON: 09/21/2018 Findings: Five views/radiographs Location: Left knee No dislocation. Linear lucency undermining the lateral tibial plateau without definitive intra-articular extent. Severe medial compartment narrowing. Small scattered osteophytes. Moderate joint effusion. IMPRESSION: Linear lucency undermining the lateral tibial plateau without definitive intra-articular extent. This finding may reflect a nondisplaced fracture. Recommend CT or MRI for further evaluation. Moderate left knee joint effusion. Electronically signed by: Adeel Cali MD 04/23/2020 5:18 PM CDT
--- NOTE | 2020-04-23 17:23 | RAD ---
EXAM DESCRIPTION: Pelvis CLINICAL HISTORY: HIP PAIN LEFT COMPARISON: 28 September 2018 TECHNIQUE: AP pelvis FINDINGS: Extensive lumbar spine surgery is observed. The exam reveals a stellate calcification overlying the right side of the pelvis measuring 8 mm in diameter. The appearance is that of a bladder stone no fracturing is detected. No significant degenerative arthritis is seen. IMPRESSION: 1. Extensive lumbar spine surgery is observed. 2. Enlarging right-sided bladder stone is observed. Electronically signed by: Elmer Ko MD 04/23/2020 5:21 PM CDT
== END ==
LOC: RAD 08:44
PROVIDERS: ATTEND Orthopaedic Surgery
DX: N32.89 Other specified disorders of bladder (principal); M89.9 Disorder of bone, unspecified; M25.462 Effusion, left knee; Z98.890 Other specified postprocedural states

== ENCOUNTER → 2020-06-22 | Outpatient (CLI) | payer BC | LOC: LAB 08:29 | PROVIDERS: ATTEND Orthopaedic Surgery | DX: Z01.818 Encounter for other preprocedural examination (principal) ==